=== PATIENT | male | born 1995 | race Caucasian/White ===

== ENCOUNTER 2021-05-13 22:36 | Emergency (ER) | payer MEDICAID ==
[~2021-05-13] VITALS: Ht 175.3 cm; Wt 81.6 kg
[2021-05-13 22:43] VITALS: BP 148/81
--- NOTE | 2021-05-13 22:43 | NUR ---
TO BED AMBULATORY
--- NOTE | 2021-05-13 22:45 | NUR ---
25 YO M BIB SELF WITH C/C OF [place] 07/20 X2 WEEKS THAT COMES AND GOES. PT STATES MOTION WORSENS THE PAIN. HE STATED THE PAIN BECOMES SO BAD HE CANNOT CONTINUE HIS DAILY ACTIVITIES. PT DENIES LIGHT SENSITIVITY. DENIES N/V. +CHILLS. PT STATED HE HAS BEEN TAKING NAPROXEN WITH LITTLE RELIEF AND BEGAN TAKING MIGRAINE PILLS TODAY. PT IS SITTING UP IN BED. PT WAS GIVEN COLD WATER AND A PILLOW, LIGHTS TURNED OFF FOR COMFORT. DENIES TAKING MEDICATION AND HX NKA
--- NOTE | 2021-05-13 23:06 | NUR ---
PT IS TEARFUL, STATED HE DOESNT KNOW WHATS CAUSING PAIN. REASSURED PT AND PROVIDED EXTRA WATER AND WARM BLANKET.
--- NOTE | 2021-05-13 23:14 | NUR ---
PT TAKEN TO CT VIA [facility].
[2021-05-13] MEDS ORDERED: KETOROLAC 60 MG/2 ML VIAL IM ONE (23:15)
--- NOTE | 2021-05-13 23:23 | NUR ---
PT BACK FROM CT VIA [facility].
--- NOTE | 2021-05-13 23:49 | NUR ---
PT HAS EYES CLOSED, STARTLED WITH SOUND. EQUAL RISE AND FALL OF CHEST WALL. BED LOCKED IN LOWEST POSITION. SIDE RAILS X2.
--- NOTE | 2021-05-14 00:11 | NUR ---
TRINH MARTINEZ AT BEDSIDE.
[2021-05-14] MEDS ORDERED: ACET-8386 PO (00:17)
[2021-05-14 00:30] VITALS: BP 136/79
--- NOTE | 2021-05-14 00:30 | NUR ---
Patient discharged with v/s stable. Written and verbal after care instructions given and explained. Patient alert, oriented and verbalized understanding of instructions. Ambulatory with steady gait. All questions addressed prior to discharge. ID band removed. Patient advised to follow up with PMD. Rx of HYDROCODONE/ACETAM given. Patient educated on indication of medication including possible reaction and side effects. Opportunity to ask questions provided and answered.
== END 2021-05-14 00:30 | disposition home or self-care (01) ==
LOC: MED 22:36
DX: R51.9 Headache, unspecified (principal)
CPT/HCPCS: 70450; 96372; 99284; J1885